=== PATIENT | male | born 1990 | race Caucasian/White ===

== ENCOUNTER 2018-10-10 09:21 | Emergency (ER) | payer MEDICAID ==
--- NOTE | 2018-10-10 09:45 | CPEKG ---
Test Reason : OPEN Blood Pressure : / mmHG Vent. Rate : 071 BPM Atrial Rate : 071 BPM P-R Int : 152 ms QRS Dur : 132 ms QT Int : 416 ms P-R-T Axes : 028 102 021 degrees QTc Int : 453 ms Sinus rhythm RBBB and LPFB Confirmed by Asael Dixon ([id number]) on 10/10/2018 9:45:32 AM Referred By: PHYSICIAN ED Confirmed By:Asael Dixon
--- NOTE | 2018-10-10 09:48 | EDPHY ---
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 No syncope since then. 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 And developed sudden sharp left- sided chest pain. Worse with movement of his shoulder and arm, worse with deep breath. Symptoms moderate. Not associated with palpitations or syncope. REVIEW OF SYSTEMS: Eye: no change in vision ENT: no sore throat Cardiac: HPI Pulmonary: no cough or SOB Abdomen: no vomiting, diarrhea, abdominal pain Musculoskeletal: HPI no leg swelling Skin: no rash Neuro: no headache Constitutional: no fever : no urinary symptoms A comprehensive 10 point review of systems is otherwise negative aside from elements mentioned in the history of present illness. Past medical history: Pacemaker in May of 2018 at [facility] [place] for syncope and bradycardia Social history: Tobacco smoker General Appearance: Alert and conversant, cooperative. Eyes: No scleral icterus. ENT, Mouth: Normal mucous membranes. Respiratory: Normal respiratory effort, breath sounds equal, lungs are clear to auscultation. Speaks in full sentences. Cardiovascular: Regular rate and rhythm. Gastrointestinal: Abdomen is soft and non tender. Neurological: Alert, face symmetric, normal motor and sensory in extremities. Skin: Warm and dry, no rashes. Musculoskeletal: Chest wall on the left side is tender. There is no redness surrounding his pacemaker insertion site. I reproduces symptoms by having him perform resisted internal rotation of his shoulder. Psychiatric: Not agitated. Emergency Department course/MDM: Patient clinically has muscle strain. Chest x-ray does not show pacemaker displacement or disruption which is what the patient is concerned about. Clinical I think it is really unlikely he has pneumothorax or ACS or pulmonary embolism. Smoking Status: Current every day smoker Constitutional: Initial Vital Signs Temperature (C) 36.6 C 10/10/18 09:22 Heart Rate 113 H 10/10/18 09:22 Respiratory Rate 18 10/10/18 09:22 Blood Pressure 126/77 H 10/10/18 09:22 O2 Sat (%) 92 10/10/18 09:22 O2 Delivery Mode Room Air Allergies/Adverse Reactions: No Known Allergies Allergy (Unverified 10/10/18 09:27) Medical Decision Making - Diagnostics EKG Interpretation: 12-lead EKG interpreted by me; official reading is in computer system. My interpretation is sinus rhythm rate 71 with right bundle branch block and left posterior fascicular block. Imaging Results: Imaging Impressions Chest X-Ray 10/10/18 09:48 Impression: 1. No active cardiopulmonary disease seen. 2. Pacemaker unit and leads appear to be in good position. Imaging: I viewed and interpreted images myself - Data Points Laboratory Results: 10/10/18 09:45 POC Troponin I 0.00 ng/mL ng/mL (0.00-0.08) Point of Care Test Results: Chemistry 10/10/18 09:45 POC Troponin I 0.00 ng/mL ng/mL (0.00-0.08) Departure - Departure Disposition: Home, Routine, Self-Care Clinical Impression: Chest pain Qualifiers: Chest pain type: unspecified Qualified Code(s): R07.9 - Chest pain, unspecified Condition: Good Instructions: Muscle Strain (ED) Additional Instructions: Pacemaker looks okay on chest x-ray. This is more likely a muscle strain. Referrals: NONE *PRIMARY CARE P,. [Primary Care Provider] - As per Instructions (Dr. 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
[2018-10-10 11:01] VITALS: BP 118/79
== END 2018-10-10 11:01 | disposition home or self-care (01) ==
DX: R07.9 Chest pain, unspecified (principal); Z95.0 Presence of cardiac pacemaker; F17.200 Nicotine dependence, unspecified, uncomplicated
CPT/HCPCS: 84484-ER